=== PATIENT | female | born 1970 | race African-American/Black ===

== ENCOUNTER 2017-08-18 02:38 | Emergency (ER) | payer SELFPAY ==
[2017-08-18 03:00] LABS: Bilirubin Small (Negative); Blood, Urine Large (Negative); Glucose, Urine (Dipstick) Negative (Negative); Leukocyte Negative (Negative); Nitrite Negative (Negative); Protein, Urine (Dipstick) > or equal to 300 mg/dL (Neg-Trace); pH, Urine 5.5 (5.0-9.0)
[2017-08-18 03:01] LABS: Clarity Clear (Clear)
[2017-08-18 03:02] LABS: Specific Gravity, Urine 1.029 (1.002-1.036)
[2017-08-18 03:04] LABS: Pregnancy Test - Urine (BHCG) Negative (Negative); Pregu Control Background? CLEAR/WHITE (CLR/WHITE); Pregu Control Bar Appear? YES (CONTROL BAR); Specific Gravity 1.029 (1.002-1.036)
[2017-08-18 03:07] LABS: Bacteria/HPF 2+ HPF (None Seen)
[2017-08-18] MEDS ORDERED: Ondansetron HCl/PF 4 MG/2 ML Vial ONE (03:15)
[2017-08-18] MEDS ORDERED: Morphine 4 MG/ML Carpuject ONE (03:15)
[2017-08-18] MEDS ORDERED: Acetaminophen 500 MG TAB ONE (03:15)
[2017-08-18] MEDS ORDERED: Sodium Chloride 0.9% 1,000 ML ONE (03:30)
[2017-08-18 03:31] LABS: Band 39 % (5-11); Hemoglobin 8.6 g/dL (12.0-16.0); Hypochromia MARKED = >30 cells (100X) (0-5/hpf); Lymphocytes 18 % (21-51); MDiff Complete? YES; Mean Corpuscular Hemoglobin 16.1 pg (27.0-31.0); Mean Corpuscular Volume 57.4 fl (81.0-99.0); Mean Platelet Volume 7.8 fL (7.4-10.4); Metamyelocyte 3 % (0-0); Microcytosis MARKED = >30 cells (100X) (0-5/hpf); Monocytes 8 % (0-10); Myelocyte 1 % (0-0); Neutrophil 31 % (42-75); Ovalocytes SLIGHT = 2-5 cells (100X) (0-1/hpf); PLT Morphology Comment Appears Increased; Platelet Count 551 thou/uL (130-400); RBC Distribution Width 17.5 % (11.5-14.5); Red Blood Cell (RBC) Count 5.37 mill/uL (4.20-5.40); Target Cells SLIGHT = 2-5 cells (100X) (0-1/hpf); White Blood Cell (WBC) Count 21.2 thou/uL (4.8-10.8)
[2017-08-18 03:34] LABS: ALT (SGPT) 25 U/L (8-55); AST (SGOT) 48 U/L (5-34); Albumin 3.8 g/dL (3.5-5.0); Alkaline Phosphatase 108 U/L (40-150); Anion Gap 17 mmol/L (10-20); BUN (Urea Nitrogen) 7 mg/dL (7.0-18.7); Calc. Creatinine Clearance 0 mL/min (70-130); Calcium 9.9 mg/dL (7.8-10.44); Carbon Dioxide 22 mmol/L (22-29); Chloride 96 mmol/L (98-107); Estimated GFR-MDRD Greater than 90; Globulin 4.7 g/dL (2.4-3.5); Glucose 121 mg/dL (70-105); Lipase 5 U/L (8-78); Potassium 3.3 mmol/L (3.5-5.1); Protein, Total 8.5 g/dL (6.0-8.3); Sodium 132 mmol/L (136-145)
[2017-08-18] MEDS ORDERED: cefTRIAXone\\ROCEPHIN 1 GM VIAL ONE (06:57)
[2017-08-18] MEDS ORDERED: Iopamidol 370 76% 100 ML VIAL ONE (09:00)
--- NOTE | 2017-08-18 11:52 | CT ---
PRELIMINARY REPORT/[facility]/EMERGENCY AFTER HOURS PROCEDURE: EXAM: CT Abdomen and Pelvis With Intravenous Contrast CLINICAL HISTORY: 46 years old, female; Pain and signs and symptoms; Constipation; Abdominal pain; Tenderness; Lower; P rior surgery; Surgery date: 6+ months; Surgery type: Tubal ' tummy tuck ; Patient HX: Patient pr esents for evaluation of abdominal distention, pt with 6 days of severe lower abd pain radiating to b ilateral low back. Tried meds for constipation and gas without relief. Elevated wbc; TECHNIQUE: Axial computed tomography images of the abdomen and pelvis with intravenous contrast. All CT scans at this facility use one or more dose reduction techniques, viz.: automated exposure control; ma/kV adj ustment per patient size (including targeted exams where dose is matched to indication; i.e. head); or iterative reconstruction technique. Coronal and sagittal reformatted images were created an d reviewed. CONTRAST: 96 mL of ISOVUE 370 administered intravenously. COMPARISON: No relevant prior studies available. FINDINGS: Lung bases: Unremarkable. No mass. No consolidation. ABDOMEN: Liver: Hepatic steatosis. Gallbladder and bile ducts: Unremarkable Pancreas: Unremarkable. Spleen: Unremarkable. Adrenals: Unremarkable. Kidneys and ureters: Unremarkable. Stomach and bowel: Unremarkable. PELVIS: Appendix: Normal appendix. Bladder: Urinary bladder is decompressed with diffuse urinary bladder wall thickening. Reproductive: Large pelvic mass measuring approximately 15 x 19 x 19 cm containing large central hypo density with chunky calcifications on the left. Hyperdense mass in the pelvis on the right measuring approximately 6.0 x 4.5 cm. ABDOMEN and PELVIS: Intraperitoneal space: No free air. No significant fluid collection. Bones/joints: No acute fracture. No dislocation. Soft tissues: Unremarkable. Vasculature: Unremarkable. No abdominal aortic aneurysm. Lymph nodes: Scattered non specific subcentimeter mesenteric lymph nodes. IMPRESSION: 1. Large 19 cm heterogenous pelvic mass as described above favoring to represent large degenerating u terine fibroid. 2. Additional 6 cm hyperdense mass in the pelvis on the right may represent additional exophytic uter ine fibroid versus hemorrhagic ovarian cyst. 3. Mild diffuse urinary bladder wall thickening which maybe due to underdistention, however cystitis is not completely excluded. Correlate clinically. 4. Recommend Gynecologic consult. Thank you for allowing us to participate in the care of your patient. Dictated and Authenticated by: Larry Narvaez MD 08/18/2017 6:32 AM Central Time ([place] & [place]) FINAL REPORT EMERGENCY AFTER HOURS CT ABDOMEN AND PELVIS PERFORMED WITH CONTRAST ENHANCEMENT: Date: 08/18/17 HISTORY: Abdominal pain and distention with severe lower abdominal pain radiating to back. COMPARISON: None. FINDINGS: The lung bases are clear. The liver and spleen show no focal abnormalities. Spleen measures 11.3 cm i n length. The pancreas and gallbladder regions are unremarkable. Right and left adrenal glands, and r ight and left kidneys are normal in size. There are small periaortic and aortocaval lymph nodes. Thes e are somewhat more numerous than typically seen. No significant mesenteric adenopathy. CT of pelvis performed with contrast enhancement. There is a huge, fibromatous uterus that measures a t least 21 cm in length and 20 cm in diameter. There is a very large fibroid that basically has simil ar diameter measurements in the fundus region and slightly more exophytic fibroids inferiorly. There is some mild pelvic vascular prominence which could indicate element of vascular congestion. No signi ficant pelvic lymphadenopathy. IMPRESSION: 1. Massively enlarged fibromatous uterus. 2. Mild bladder wall thickening, probably on the basis of underdistention. This report is in agreement with the preliminary report issued by [facility]. POS: GINGER
== END 2017-08-18 07:30 | disposition short-term general hospital (02) ==
LOC: NAV ERS 02:38
DX: R19.04 Left lower quadrant abdominal swelling, mass and lump (principal); R19.03 Right lower quadrant abdominal swelling, mass and lump
CPT/HCPCS: 74177; 80053; 81003; 81015; 81025; 83605; 83690; 85025; 87040; 87086; 96361; 96365; 96375; J0696; J2270; J2405; J7050

== ENCOUNTER 2024-11-23 19:48 | Emergency (ER) | payer OTHER ==
[2024-11-23] MEDS ORDERED: HYDROcodone/Acetaminophen 10/325 mg Tablet ONE (20:11)
== END 2024-11-23 20:47 | disposition home or self-care (01) ==
LOC: NAV ERS 19:48
DX: M54.9 Dorsalgia, unspecified (principal)
CPT/HCPCS: 71046